=== PATIENT | female | born 1995 | race Two or more races ===

== ENCOUNTER 2016-09-27 20:02 | Emergency (ER) | payer OTHER ==
[2016-09-27] MEDS ORDERED: IOPAMIDOL 300 (61%) 100 ML VIAL IV ONE (20:03)
[2016-09-27] MEDS ORDERED: LORAZEPAM 2 MG/ML 1ML SDV ONE (21:14)
[2016-09-27] MEDS ORDERED: LACTATED RINGERS 1,000 ML ONE (21:14)
[2016-09-27 21:24] LABS: ABSOLUTE NEUTROPHIL COUNT 18.5 K/mm3 (1.8-7.7); BASO % 0.1 % (0.2-1.0); EOS % 0.1 % (0.9-2.9); HEMATOCRIT 41.9 % (37.0-47.0); HEMOGLOBIN 14.3 gm/l (12.0-16.0); IMM NEUT # 0.1 K/mm3 (0-0.2); IMM NEUT% 0.4 % (0-1); LYMPH # 0.7 (1.0-4.8); LYMPH % 3.6 % (15-45); MEAN CELL VOLUME 86.9 fl (81.0-99.0); MEAN CORPUSCULAR HEMOGLOBIN 29.7 pg (27.0-31.0); MEAN CORPUSCULAR HGB CONC 34.1 g/dl (33.0-37.0); MEAN PLATELET VOLUME 8.9 fl (7.4-10.4); MONO # 0.7 (0.0-0.8); MONO % 3.6 % (4-12); NEUT % 92.2 % (43-75); PLATELET COUNT 376 K/mm3 (130-400); RED CELL DISTRIBUTION WIDTH 12.5 % (11.5-14.5)
[2016-09-27 21:34] LABS: ALB/GLOB RATIO 1.5 (>1.0); ALBUMIN 4.8 gm/dL (3.5-5.7); CALCIUM 9.7 mg/dL (8.6-10.3)
[2016-09-27 21:36] LABS: URINE BILIRUBIN NEGATIVE (NEGATIVE); URINE BLOOD 2+ (NEGATIVE); URINE GLUCOSE (UA) NEGATIVE (NEGATIVE); URINE LEUKOCYTE ESTERASE TRACE (NEGATIVE); URINE NITRITE NEGATIVE (NEGATIVE); URINE PROTEIN TRACE (NEGATIVE); URINE UROBILINOGEN NORMAL (0-1 mg/dl)
[2016-09-27 21:40] LABS: URINE APPEARANCE CLEAR; URINE COLOR YELLOW
[2016-09-27 21:45] LABS: URINE BACTERIA 2+; URINE WBC 0-2 /hpf
[2016-09-27] MEDS ORDERED: ONDANSETRON 4 MG/2ML 2 ML VIAL ONE (21:45)
[2016-09-27] MEDS ORDERED: HYDROMORPHONE HCL 0.5 MG/0.5 ML SYRINGE ONE (21:46)
[2016-09-27 22:11] LABS: TOTAL CELLS COUNTED 100
[2016-09-27 22:14] LABS: ATYPICAL LYMPHOCYTE 2 %; BAND 1 % (0-10); BASOPHIL 0 % (0-1); EOSINOPHIL 0 % (1-3); LYMPHOCYTE 2 % (15-45); MONOCYTE 3 % (4-12); NEUTROPHILS 92 % (43-75); PLATELET ESTIMATE NORMAL (NORMAL)
--- NOTE | 2016-09-28 08:23 | CT ---
Exam Type: ABD/PELVIS W/ CON Date and Time: 09/27/2016 9:50 PM Clinical information: Chronic abdominal pain. Diarrhea and nausea. Epigastric pain since 0700 hours. Comparison: None Technique: Contiguous axial 4 mm images were obtained from the lung bases through the pelvis after the uneventful IV administration of 100 cc of Isovue 300. Sagittal and coronal reformations with high resolution lung algorithm images were also obtained at this time. CT DI: 12.6 DLP 644.7 FINDINGS: Lung base :No abnormality is identified at the lung bases. Visualized heart:There is no pericardial effusion. LIVER: within normal limits. BILE DUCTS: Common bile duct measures upwards 1 cm in diameter. GALLBLADDER: Surgically absent. PANCREAS: within normal limits. SPLEEN: within normal limits. ADRENALS: within normal limits. KIDNEYS: within normal limits. Stomach and small BOWEL: Normal caliber. Large bowel: Appendix is normal. Predominantly fluid is seen within the large bowel with air-fluid levels. Findings would be compatible with the patient's stated diarrhea. LYMPH NODES: No enlarged mesenteric lymph nodes. PERITONEUM: Small amount of sludge fluid is noted in the pelvis. VESSELS: within normal limits RETROPERITONEUM: within normal limits. ABDOMINAL WALL: within normal limits. Bladder: Decompressed. Uterus and adnexa: Unremarkable. BONES: There may be some slight retrolisthesis of L5 on S1. Otherwise normal. IMPRESSION: Fluid, with air-fluid levels are identified within the large bowel compatible with the patient's history of diarrhea. Otherwise no acute inflammatory process is present within the abdomen or pelvis. Close clinical and radiographic follow-up are recommended. Postsurgical change from prior cholecystectomy and other incidental findings as above. Preliminary report was provided by [employer] at approximately 2320 hours on 09/27/2016.
[2016-09-29 15:26] LABS: CHLAMYDIA BD Negative (Negative); N.GONORRHOEAE BD Negative (Negative); SOURCE Urine (())
== END 2016-09-28 | disposition home or self-care (01) ==
LOC: ED 20:02
DX: K29.70 Gastritis, unspecified, without bleeding (principal); K58.9 Irritable bowel syndrome, unspecified